=== PATIENT | female | born 1985 | race Caucasian/White ===

== ENCOUNTER 2024-09-12 07:18 | Inpatient (IN) | payer BC ==
[~2024-09-12] VITALS: Ht 190.5 cm; Wt 137.2 kg
[2024-09-12 08:22] LABS: PLATELET COUNT (AUTO) 354 K/uL (150-450); RED BLOOD CELL COUNT(AUTO) 5.00 MIL/uL (4.0-5.2); RED CELL DISTRIBUTION WIDTH 13.8 % (11.5-15.0); WHITE BLOOD COUNT (AUTO) 14.7 K/uL (4.3-11.0)
[2024-09-12 08:36] LABS: ASPARTATE AMINOTRANSFERASE 18.0 U/L (15-37); CALCIUM, SERUM 8.9 mg/dL (8.5-10.1); CREATININE 0.7 mg/dL (0.6-1.3); SODIUM SERUM 139.0 mmol/L (136-145); TOTAL PROTEIN, SERUM 7.6 g/dL (6.4-8.2); UREA NITROGEN, BLOOD 8.0 mg/dL (7-18)
[2024-09-12] MEDS ORDERED: ONDANSETRON HCL/PF 4 MG/2 ML VIAL ONE (08:48)
[2024-09-12] MEDS: IV NS 0.9% 1,000 ML BAG IV ONE (08:53)
[2024-09-12] MEDS: ONDANSETRON HCL/PF 4 MG/2 ML VIAL IVP ONE (08:57)
[2024-09-12] MEDS ORDERED: PROG200C15 PO (10:04)
[2024-09-12] MEDS ORDERED: ESTR1TAB28 PO ×2 (10:04)
[2024-09-12 10:35] VITALS: BP 137/90; TEMP 97.8; O2SAT 97
[2024-09-12] MEDS ORDERED: ANESTHESIA TRAY IN PYXIS 1 EA TRAY MC ONE (10:42)
[2024-09-12] MEDS ORDERED: MIDAZOLAM HCL 2 MG/2ML VIAL ONE (11:26)
[2024-09-12] MEDS ORDERED: FENTANYL PF 100MCG/2ML AMPUL ONE (11:26)
[2024-09-12] MEDS ORDERED: FLUMAZENIL 0.5 MG VIAL ONE (12:19)
[2024-09-12 16:00] VITALS: BP 125/78; TEMP 98.2; O2SAT 97
[2024-09-12 20:00] VITALS: BP 125/76; TEMP 98.4; O2SAT 96
[2024-09-12] MEDS ORDERED: Medication Not On Formulary EA (Progesterone,Micronized (Prometrium) 200 MG) PO SCH (22:00)
[2024-09-13 04:00] VITALS: BP 117/76; TEMP 97.9; O2SAT 97
[2024-09-13 08:00] VITALS: BP 117/91; TEMP 97.9; O2SAT 97
[2024-09-13] MEDS: ESTRADIOL 1 MG TABLET PO SCH (08:10)
[2024-09-13] MEDS ORDERED: ESTRADIOL 1 MG TABLET PO SCH (18:00)
== END 2024-09-13 16:00 | disposition home or self-care (01) | DRG 395 ==
LOC: ER 07:29 → MEDSG1 10:04
PROVIDERS: ADMIT Internal Medicine; ATTEND Internal Medicine
PROC: 0DC58ZZ Extirpation of Matter from Esophagus, Via Natural or Artificial Opening Endoscopic (ICD-10-PCS; principal; 2024-09-12 11:30)
DX: T18.128A Food in esophagus causing other injury, initial encounter (principal); W44.F3XA Food entering into or through a natural orifice, initial encounter; Y92.009 Unspecified place in unspecified non-institutional (private) residence as the place of occurrence of the external cause; K29.70 Gastritis, unspecified, without bleeding; K22.2 Esophageal obstruction; Z90.49 Acquired absence of other specified parts of digestive tract; Z87.890 Personal history of sex reassignment; D72.829 Elevated white blood cell count, unspecified; E87.6 Hypokalemia; E66.9 Obesity, unspecified; Z68.37 Body mass index [BMI] 37.0-37.9, adult; Z79.899 Other long term (current) drug therapy
CPT/HCPCS: 36415; 71250-TC; 80048-TC; 80076-TC; 83690-TC; 85025-TC; G0378; J2250; J2405; J2704; J3010; J3490; J7030